=== PATIENT | female | born 1945 | race African-American/Black ===

== ENCOUNTER → 2016-07-19 | Outpatient (CLI) | payer MEDICARE, OTHER ==
--- NOTE | 2016-07-19 16:29 | WOMENS IMAGING REPORT ---
EXAM DESCRIPTION: 3D SCREENING MAMMO BILAT COMPLETED DATE/TIME: 07/19/2016 8:28 am REASON FOR STUDY: Z12.31, ROUTINE SCREENING MAMMO COMPARISON: Multiple since 2008 TECHNIQUE: Standard craniocaudal and mediolateral oblique views of each breast recorded using digita l acquisition and breast tomosynthesis. LIMITATIONS: None. FINDINGS: Findings present which are benign by mammographic criteria. No suspicious masses, calcifi cations or architectural distortion. Pertinent benign findings: Benign breast calcifications bilaterally. Old postsurgical changes in the right retroareolar region Read with the assistance of CAD. .[facility] - R2 Cenova Version 1.3 .[facility] - R2 Cenova Version 1.3 .[facility] - R2 Cenova Version 2.4 .[facility] - R2 Cenova Version 2.4 .[facility] - R2 [employer] Version 9.2 Benign mammographic findings may include one or more of the following: Smooth masses, popcorn/rim/co arse calcifications, asymmetries, post-procedure changes, and lesions with long-standing stability. IMPRESSION: BENIGN MAMMOGRAPHIC FINDINGS. BIRADS 2 BREAST DENSITY: b. There are scattered areas of fibroglandular density. BIRAD: 2 BENIGN FINDING(S) RECOMMENDATION: RECOMMENDATION: ROUTINE SCREENING COMMENT: The patient has been notified of the results by letter per MQSA requirements. Additional no tification policies are in place for contacting patient with suspicious or incomplete findings. Quality ID #[id number]: The [employer] recommends an annual screening mammogram for women aged 40 years or over. This facility utilizes a reminder system to ensure that all patients receive reminder letters, and/or direct phone calls for appointments. This includes reminders for routine scr eening mammograms, diagnostic mammograms, or other Breast Imaging Interventions when appropriate. Th is patient will be placed in the appropriate reminder system. The [employer] (ACR) has developed recommendations for screening MRI of the breast s in certain patient populations, to be used in conjunction with mammography. Breast MRI surveillanc e may be appropriate for women with more than 20% lifetime risk of developing breast cancer as deter mined by genetic testing, significant family history of the disease, or history of mantle radiation f or Hodgkins Disease. ACR Practice Guidelines 2008. DBT Technology DBT is a type of tomographic mammography. With conventional mammography, overlapping breast tissue ma y make lesions difficult to detect, even with good compression. DBT uses an x-ray tube that rotates a round the breast, taking images at different angles. These images are then combined to create thin sl ices of the breast that the radiologist can view as a 3D reconstruction. The Hologic unit can perform full-field digital mammograms (2D imaging); or DBT (3D imaging); or both, in a combination mode that quickly performs both the mammogram and the tomosynthesis scan while the breast is still compressed. PQRS 6045F: Fluoroscopic imaging is not utilized for breast tomosynthesis. TECHNICAL DOCUMENTATION: FINDING NUMBER: (1) ASSESSMENT: (1) JOB ID: [id number] [employer]- All Rights Reserved
== END ==
LOC: WI 08:01
PROVIDERS: ATTEND Nurse Practitioner
DX: Z12.31 Encounter for screening mammogram for malignant neoplasm of breast (principal)
CPT/HCPCS: 77063; G0202; 77067

== ENCOUNTER 2017-11-08 19:42 | Emergency (ER) | payer MEDICARE, OTHER ==
[2017-11-08 20:00] VITALS: BP 139/90
[2017-11-08] MEDS ORDERED: ASPIRIN 81 MG TABLET, CHEWABLE PO ONE (20:48)
[2017-11-08 20:57] LABS: ABSOLUTE EOSINOPHILS # (AUTO) 0.2 10^3/uL (0.0-0.6); ABSOLUTE LYMPHOCYTES (AUTO) 3.5 10^3/uL (0.5-4.7); ABSOLUTE MONOCYTES (AUTO) 0.6 10^3/uL (0.1-1.4); ABSOLUTE NEUT (AUTO) 4.4 10^3/uL (1.7-8.2); BASOPHILS % (AUTO) 0.4 % (0-2); HEMATOCRIT 41.5 % (36.0-47.0); HEMOGLOBIN 13.7 g/dL (12.0-15.5); LYMPHOCYTES % (AUTO) 40.3 % (13-45); MEAN CORPUSCULAR HEMOGLOBIN 29.1 pg (27.0-33.4); MEAN CORPUSCULAR HGB CONC 33.1 g/dL (32.0-36.0); MEAN CORPUSCULAR VOLUME 88 fl (80-97); MONOCYTES % (AUTO) 6.6 % (3-13); PLATELET COUNT 263 10^3/uL (150-450); RED BLOOD COUNT 4.73 10^6/uL (3.72-5.28); RED CELL DISTRIBUTION WIDTH 14.9 % (11.5-14.0); SEGMENTED NEUTROPHILS % (AUTO) 50.7 % (42-78); TOTAL CELLS COUNTED % (AUTO) 100 %; WHITE BLOOD COUNT 8.7 10^3/uL (4.0-10.5)
[2017-11-08 21:00] LABS: ALANINE AMINOTRANSFERASE 16 U/L (9-52); ALBUMIN 4.3 g/dL (3.5-5.0); ALKALINE PHOSPHATASE 71 U/L (38-126); ANION GAP 6 (5-19); ASPARTATE AMINO TRANSFERASE 43 U/L (14-36); BILIRUBIN,DIRECT 0.5 mg/dL (0.0-0.4); BILIRUBIN,TOTAL 0.6 mg/dL (0.2-1.3); BLOOD UREA NITROGEN 12 mg/dL (7-20); CALCIUM 9.9 mg/dL (8.4-10.2); CARBON DIOXIDE 29 mmol/L (22-30); CHLORIDE 106 mmol/L (98-107); CREATINE KINASE 56 U/L (30-135); GLUCOSE 93 mg/dL (75-110); POTASSIUM 3.9 mmol/L (3.6-5.0); SODIUM 140.5 mmol/L (137-145); TOTAL PROTEIN 7.8 g/dL (6.3-8.2)
[2017-11-08 21:11] LABS: CREATINE KINASE MB 0.79 ng/mL (<4.55)
[2017-11-08 21:12] LABS: TROPONIN I < 0.012 ng/mL
--- NOTE | 2017-11-08 21:18 | ER Document Report ---
ED General - General Chief Complaint: Chest Pain Stated Complaint: CHEST PAIN,LEFT SHOULDER PAIN Time Seen by Provider: 11/08/17 21:10 Notes: Patient presents with concern of shoulder pain and lateral left chest wall pain. Patient states that she has been doing a lot of volunteer work since [place] has been moving a lot of objects to help her clean up. Her pain is reproducible with movement of her arm as well as squeezing of her chest wall. She denies any history of heart attack or stroke does not take any blood thinners. She denies any shortness of breath and denies any dyspnea on exertion while working for her volunteer group. TRAVEL OUTSIDE OF THE [place] IN LAST 30 DAYS: No - Related Data Allergies/Adverse Reactions: No Known Allergies Allergy (Verified 11/15/14 19:35) Past Medical History - Social History Smoking Status: Former Smoker Family History: Reviewed & Not Pertinent Patient has suicidal ideation: No Patient has homicidal ideation: No - Past Medical History Cardiac Medical History: Reports: Hx Hypertension Denies: Hx Heart Attack, Hx Hypercholesterolemia Pulmonary Medical History: Denies: Hx Asthma, Hx COPD Neurological Medical History: Denies: Hx Cerebrovascular Accident, Hx Migraine Endocrine Medical History: Denies: Hx Diabetes Mellitus Type 1, Hx Diabetes Mellitus Type 2 Renal/ Medical History: Denies: Hx Peritoneal Dialysis Malignancy Medical History: Reports: Hx Breast Cancer Past Surgical History: Reports: Hx Breast Surgery - right breast lumpectomy, Hx Hysterectomy - Immunizations Hx Diphtheria, Pertussis, Tetanus Vaccination: No Review of Systems - Review of Systems Constitutional: No symptoms reported EENT: No symptoms reported Cardiovascular: See HPI Respiratory: No symptoms reported Gastrointestinal: No symptoms reported Genitourinary: No symptoms reported Female Genitourinary: No symptoms reported Musculoskeletal: No symptoms reported Skin: No symptoms reported Hematologic/Lymphatic: No symptoms reported Neurological/Psychological: No symptoms reported Physical Exam - Vital signs Vitals: Temp Pulse BP Pulse Ox 97.6 F 87 139/90 H 99 11/08/17 19:58 11/08/17 19:58 11/08/17 19:58 11/08/17 19:58 - General General appearance: Appears well, Alert - HEENT Head: Normocephalic, Atraumatic - Respiratory Respiratory status: No respiratory distress Chest status: Tender, Pain on movement - Cardiovascular Rhythm: Regular Heart sounds: Normal auscultation - Abdominal Inspection: Normal - Extremities General upper extremity: Normal inspection General lower extremity: Normal inspection - Neurological Cognition: Normal Orientation: AAOx4 Course - Re-evaluation Re-evalutation: 11/08/17 21:15 Patient well-appearing for age in no acute distress her pain is replicated with movement of her arm and chest wall. Due to patient being sent from urgent care chest pain workup was placed as a standing order. She first noticed her pain with movement approximate 3 PM and troponin is negative which has been greater than 4 hours. Based on history and patient's story of moving objects and pain reproduced patient will be diagnosed with muscular pain. Will be provided Voltaren gel and was instructed to use caution and not over exert herself with lifting 2 heavy objects. Return precautions regarding chest pain that would be more concerning for heart related activity was discussed. 11/08/17 21:50 - Vital Signs Vital signs: Temp Pulse Resp BP Pulse Ox 97.6 F 87 139/90 H 99 11/08/17 19:58 11/08/17 19:58 11/08/17 19:58 11/08/17 19:58 - Laboratory Result Diagrams: 11/08/17 19:19 11/08/17 19:19 Laboratory results interpreted by me: 11/08/17 11/08/17 19:19 19:19 RDW 14.9 H Direct Bilirubin 0.5 H AST 43 H - Diagnostic Test Radiology reviewed: Image reviewed, Reports reviewed - EKG Interpretation by Ga EKG shows normal: Sinus rhythm Rate: Normal Rhythm: NSR Discharge - Discharge Clinical Impression: Muscle strain Condition: Good Disposition: HOME, SELF-CARE Instructions: Muscle Strain (OM) Prescriptions: Diclofenac Sodium [Voltaren] 100 gm TP QID PRN #1 tube PRN Reason: Referrals: KRISHNA MEDEROS FNP [Primary Care Provider] - Follow up in 3-5 days (For re- evaluation)
--- NOTE | 2017-11-08 23:54 | RADIOLOGY REPORT (SQ) ---
XR CHEST 1 VIEW HISTORY: Chest pain. COMPARISON: 11/15/14 FINDINGS/IMPRESSION: Normal cardiomediastinal silhouette. Pulmonary vasculature is unremarkable. Lungs are clear. No pleural effusion or pneumothorax is seen. No acute osseous findings.
--- NOTE | 2017-11-09 07:59 | EKG REPORT ---
SEVERITY:- BORDERLINE ECG - SINUS RHYTHM VENTRICULAR PREMATURE COMPLEX BORDERLINE T ABNORMALITIES, INFERIOR LEADS : Confirmed by: Tesha Gutierrez MD 09-Nov-2017 07:58:06
== END 2017-11-08 22:05 | disposition home or self-care (01) ==
LOC: ER 19:42
DX: T14.8XXA Other injury of unspecified body region, initial encounter (principal); X58.XXXA Exposure to other specified factors, initial encounter; R07.89 Other chest pain; I10 Essential (primary) hypertension; Z87.891 Personal history of nicotine dependence; Z85.3 Personal history of malignant neoplasm of breast
CPT/HCPCS: 36415; 71045; 80053; 82550; 82553; 84484; 85025; 93005; 93010; 99285

== ENCOUNTER 2018-12-03 08:05 | Observation (INO) | payer MEDICARE, OTHER ==
[2018-12-03 09:41] LABS: ABSOLUTE EOSINOPHILS # (AUTO) 0.1 10^3/uL (0.0-0.6); ABSOLUTE LYMPHOCYTES (AUTO) 1.6 10^3/uL (0.5-4.7); ABSOLUTE MONOCYTES (AUTO) 0.5 10^3/uL (0.1-1.4); BASOPHILS % (AUTO) 0.4 % (0-2); EOSINOPHILS % (AUTO) 2.8 % (0-6); HEMATOCRIT 39.1 % (36.0-47.0); LYMPHOCYTES % (AUTO) 30.5 % (13-45); MEAN CORPUSCULAR HGB CONC 33.2 g/dL (32.0-36.0); MEAN CORPUSCULAR VOLUME 87 fl (80-97); MONOCYTES % (AUTO) 8.9 % (3-13); PLATELET COUNT 274 10^3/uL (150-450); RED BLOOD COUNT 4.48 10^6/uL (3.72-5.28); SEGMENTED NEUTROPHILS % (AUTO) 57.4 % (42-78); TOTAL CELLS COUNTED % (AUTO) 100 %; WHITE BLOOD COUNT 5.2 10^3/uL (4.0-10.5)
--- NOTE | 2018-12-03 09:46 | ER Document Report ---
ED General - General Chief Complaint: Dizziness Stated Complaint: CHEST PAIN Time Seen by Provider: 12/03/18 09:42 Primary Care Provider: KRISHNA MEDEROS FNP [Primary Care Provider] - Follow up as needed Notes: HPI: Patient is a 73-year-old female that presents today with the onset upon awakening with some left-sided chest discomfort that was described as "sharp" radiating down the left arm. Patient states she was nauseous and had some diaphoresis. She denies any shortness of breath, calf pain or leg swelling, recent trips or travel. She denies any appreciable cough. Patient states she has had some intermittent chest discomfort over this last month but states that this was more intense this morning. It lasted around 10 minutes and resolved on its own without intervention. ROS: See HPI All other review of systems reviewed and otherwise negative Reviewed vital signs and nursing note as charted by RN. PHYSICAL EXAM: CONSTITUTIONAL: Alert and oriented and responds appropriately to questions. W ell-appearing; well-nourished HEAD: Normocephalic; atraumatic NECK: Supple without meningismus; non-tender; no cervical lymphadenopathy, no masses CARD: Regular rate and rhythm; no murmurs; symmetric distal pulses RESP: Normal chest excursion without splinting or tachypnea; breath sounds clear and equal bilaterally; no wheezes, no rhonchi, no rales ABD/GI: Normal bowel sounds; non-distended; soft, non-tender BACK: The back appears normal and is non-tender to palpation EXT: Normal ROM in all joints; non-tender to palpation; no edema SKIN: No acute lesions noted NEURO: CN 2-12 intact; 5/5 bilateral upper and lower extremity strength with sensation intact to light touch PSYCH: The patient's mood and manner are appropriate. Grooming and personal hygiene are appropriate. TRAVEL OUTSIDE OF THE [place] IN LAST 30 DAYS: No - Related Data Allergies/Adverse Reactions: No Known Allergies Allergy (Verified 12/03/18 08:42) Home Medications: Metronidazole - started 11/30/18. Ciprofloxacin - started 11/30/18. Methimazole. Atorvastatin. Losartan. Metformin Past Medical History - Social History Smoking Status: Former Smoker Frequency of alcohol use: None Drug Abuse: None Family History: Reviewed & Not Pertinent Patient has suicidal ideation: No Patient has homicidal ideation: No - Past Medical History Cardiac Medical History: Reports: Hx Hypertension Denies: Hx Heart Attack, Hx Hypercholesterolemia Pulmonary Medical History: Denies: Hx Asthma, Hx COPD Neurological Medical History: Denies: Hx Cerebrovascular Accident, Hx Migraine Endocrine Medical History: Reports: Hx Diabetes Mellitus Type 2. Denies: Hx Diabetes Mellitus Type 1 Renal/ Medical History: Denies: Hx Peritoneal Dialysis Malignancy Medical History: Reports: Hx Breast Cancer Past Surgical History: Reports: Hx Breast Surgery - right breast lumpectomy, Hx Hysterectomy - Immunizations Hx Diphtheria, Pertussis, Tetanus Vaccination: No Physical Exam - Vital signs Vitals: Temp Pulse Resp BP Pulse Ox 98 F 102 H 18 136/82 H 96 12/03/18 08:22 12/03/18 08:22 12/03/18 08:22 12/03/18 08:22 12/03/18 08:22 Course - Re-evaluation Re-evalutation: Given the history and physical examination, we will obtain basic labs, cardiac panel, EKG, x-ray of the chest, provide aspirin, and reassess. I do believe pulmonary embolism and aortic dissection to be extraordinarily unlikely at this moment. 12/03/18 09:42 Heart rate 102, sinus tachycardia, normal axis, inverted T waves in leads I, II, aVL, V5 and V6 12/03/18 11:31 Patient is still chest pain-free. Labs, EKG, and imaging as recorded. Patient has been admitted to the hospitalist service for further evaluation with possibly cardiology consultation. - Vital Signs Vital signs: Temp Pulse Resp BP Pulse Ox 98 F 102 H 18 120/85 98 12/03/18 08:22 12/03/18 08:22 12/03/18 10:01 12/03/18 10:00 12/03/18 10:01 - Laboratory Result Diagrams: 12/03/18 09:29 12/03/18 09:29 Laboratory results interpreted by me: 12/03/18 12/03/18 09:29 09:29 RDW 15.0 H Chloride 109 H Est GFR (MDRD) Non-Af 54 L Discharge - Discharge Clinical Impression: Chest pain Qualifiers: Chest pain type: unspecified Qualified Code(s): R07.9 - Chest pain, unspecified Condition: Fair Disposition: ADMITTED OBSERVATION Admitting Provider: Talita (Hospitalist) Unit Admitted: Telemetry Referrals: KRISHNA MEDEROS FNP [Primary Care Provider] - Follow up as needed
[2018-12-03 10:02] LABS: ALBUMIN 3.9 g/dL (3.5-5.0); ALKALINE PHOSPHATASE 65 U/L (38-126); ANION GAP 11 (5-19); ASPARTATE AMINO TRANSFERASE 25 U/L (14-36); BILIRUBIN,DIRECT 0.1 mg/dL (0.0-0.4); BILIRUBIN,TOTAL 0.6 mg/dL (0.2-1.3); BLOOD UREA NITROGEN 12 mg/dL (7-20); CALCIUM 9.7 mg/dL (8.4-10.2); CARBON DIOXIDE 24 mmol/L (22-30); CHLORIDE 109 mmol/L (98-107); CREATINE KINASE 76 U/L (30-135); GLUCOSE 88 mg/dL (75-110); POTASSIUM 4.3 mmol/L (3.6-5.0)
[2018-12-03] MEDS ORDERED: ASPIRIN 325 MG TABLET PO ONE (10:10)
[2018-12-03 10:14] LABS: CREATINE KINASE MB 1.44 ng/mL (<4.55)
[2018-12-03 10:15] LABS: TROPONIN I < 0.012 ng/mL
--- NOTE | 2018-12-03 10:36 | EKG REPORT ---
SEVERITY:- ABNORMAL ECG - SINUS TACHYCARDIA WITH APC NONSPECIFIC T ABNORMALITIES, DIFFUSE LEADS : Confirmed by: Mich Preciado 03-Dec-2018 10:35:37
--- NOTE | 2018-12-03 11:47 | RADIOLOGY REPORT (SQ) ---
EXAM DESCRIPTION: CHEST 2 VIEWS COMPLETED DATE/TIME: 12/03/2018 10:56 am REASON FOR STUDY: 16; chest pain COMPARISON: Chest films 11/08/2017, 11/15/2014 EXAM PARAMETERS: NUMBER OF VIEWS: two views TECHNIQUE: Digital Frontal and Lateral radiographic views of the chest acquired. RADIATION DOSE: NA LIMITATIONS: none FINDINGS: LUNGS AND PLEURA: No opacities, masses or pneumothorax. No pleural effusion. MEDIASTINUM AND HILAR STRUCTURES: No masses or contour abnormalities. HEART AND VASCULAR STRUCTURES: Heart normal size. No evidence for failure. BONES: No acute findings. Osteoarthritis both shoulders HARDWARE: None in the chest. OTHER: No other significant finding. IMPRESSION: NO ACUTE RADIOGRAPHIC FINDING IN THE CHEST. TECHNICAL DOCUMENTATION: JOB ID: [id number] [employer]- All Rights Reserved Reading location - IP/workstation name: [email or web address]
[2018-12-03] MEDS ORDERED: ACETAMINOPHEN 325 MG TABLET PO PRN (12:28)
--- NOTE | 2018-12-03 12:51 | PDOC H&P ---
History of Present Illness Admission Date/PCP: 12/03/18 11:41 [facility] History of Present Illness: TIMMY LOPES is a 73 year old female with a history of hypertension and lfd-[id number]-zlqsgkixa diabetes mellitus who presents today after waking up this morning with left-sided chest pain that radiated to her left arm. She said it lasted about 5 or 10 minutes and then went away for a while and then came back again lasted about the same period of time. She said it happened a few times today, including a couple times after she got to the ER but she is been pain- free for a few hours now. She says she is never had anything like this before. She said she had a normal stress test a few years ago but she is not sure why she got it. She does have a history of treated breast cancer and had a lumpectomy but that was on the right side. She is not a smoker nor has she ever been. There is no history of coronary artery disease in her family. Her troponins have been normal and her EKG was unremarkable. She is being admitted for observation and a stress test. Past Medical History Cardiac Medical History: Reports: Hypertension Denies: Myocardial Infarction, Hyperlipidema Pulmonary Medical History: Denies: Asthma, Chronic Obstructive Pulmonary Disease (COPD) Neurological Medical History: Denies: Migraine Endocrine Medical History: Reports: Diabetes Mellitus Type 2 Denies: Diabetes Mellitus Type 1 Malignancy Medical History: Reports: Breast Cancer Past Surgical History Past Surgical History: Reports: Hysterectomy Social History Smoking Status: Former Smoker Frequency of Alcohol Use: Rare Hx Recreational Drug Use: No Hx Prescription Drug Abuse: No Family History Family History: Reviewed & Not Pertinent Parental Family History Reviewed: Yes - Father had lung cancer Children Family History Reviewed: Yes Sibling(s) Family History Reviewed.: Yes Medication/Allergy Allergies/Adverse Reactions: No Known Allergies Allergy (Verified 12/03/18 08:42) Review of Systems All systems: reviewed and no additional remarkable complaints except as stated - All systems were reviewed and were negative except as noted in the HPI Physical Exam Vital Signs: Temp Pulse Resp BP Pulse Ox 98 F 102 H 17 119/89 H 99 12/03/18 08:22 12/03/18 08:22 12/03/18 11:59 12/03/18 12:00 12/03/18 12:00 Intake & Output 12/02/18 12/03/18 12/04/18 06:59 06:59 06:59 Weight 72.121 kg General appearance: PRESENT: no acute distress, cooperative, obese Head exam: PRESENT: atraumatic, normocephalic Eye exam: PRESENT: EOMI, PERRLA. ABSENT: conjunctival injection, nystagmus, scleral icterus Ear exam: PRESENT: normal external ear exam Mouth exam: PRESENT: moist, neck supple Throat exam: ABSENT: post pharyngeal erythema Neck exam: PRESENT: full ROM. ABSENT: carotid bruit, JVD, lymphadenopathy, meningismus, tenderness, thyromegaly Respiratory exam: PRESENT: clear to auscultation madi, symmetrical, unlabored. ABSENT: accessory muscle use, chest wall tenderness, crackles, prolonged expiratory phas, rhonchi, tachypnea, wheezes Cardiovascular exam: PRESENT: RRR, +S1, +S2. ABSENT: systolic murmur Pulses: PRESENT: normal carotid pulses Vascular exam: PRESENT: normal capillary refill GI/Abdominal exam: PRESENT: normal bowel sounds, soft. ABSENT: distended, guarding, rebound, tenderness Extremities exam: ABSENT: clubbing, pedal edema Musculoskeletal exam: PRESENT: normal inspection. ABSENT: deformity Neurological exam: PRESENT: alert, awake, oriented to person, oriented to place, oriented to time, oriented to situation, CN II-XII grossly intact. ABSENT: motor sensory deficit Psychiatric exam: PRESENT: appropriate affect, normal mood Skin exam: PRESENT: dry, warm Results Laboratory Results: 12/03/18 09:29 12/03/18 09:29 12/03/18 12/03/18 09:29 09:29 WBC 5.2 RBC 4.48 Hgb 13.0 Hct 39.1 MCV 87 MCH 29.0 MCHC 33.2 RDW 15.0 H Plt Count 274 Seg Neutrophils % 57.4 Sodium 143.8 Potassium 4.3 Chloride 109 H Carbon Dioxide 24 Anion Gap 11 BUN 12 Creatinine 1.00 Est GFR ( Amer) > 60 Glucose 88 Calcium 9.7 Total Bilirubin 0.6 AST 25 Alkaline Phosphatase 65 Total Protein 7.0 Albumin 3.9 12/03/18 12/03/18 09:29 09:29 Creatine Kinase 76 CK-MB (CK-2) 1.44 Troponin I < 0.012 Impressions: Chest X-Ray 10/20/19 10:31 IMPRESSION: NO ACUTE RADIOGRAPHIC FINDING IN THE CHEST. Assessment and Plan - Diagnosis (1) Chest pain Qualifiers: Chest pain type: unspecified Qualified Code(s): R07.9 - Chest pain, unspec ified Is this a current diagnosis for this admission?: Yes Plan: Chief risk factors for age. She says she takes medicine for blood pressure but was told she is only on that because she is taking medicine for diabetes. She also says that her good cholesterol is low but her overall cholesterol numbers are normal, but she says she takes cholesterol medicine because her doctor told her because she is on diabetes medicine she should be taking it. We will run a trend on her enzymes and anticipate a stress test in the morning. If normal, cyndie scott can be discharged home. (2) Wit-yrnwimn-xhnbppeeh diabetes mellitus without complications Qualifiers: Diabetes mellitus long-term insulin use: without long-term use Qualified Code(s): E11.9 - Type 2 diabetes mellitus without complications Is this a current diagnosis for this admission?: Yes Plan: We will continue her home medications and a diabetic diet (3) Dyslipidemia Is this a current diagnosis for this admission?: Yes Plan: We will continue her home medications and a cardiac diet - Time Time Spent with patient: 35 or more minutes
[2018-12-03] MEDS ORDERED: DEXTROSE 40% GEL 15 GM TUBE PO PRN ×2 (19:43)
[2018-12-03] MEDS ORDERED: DEXTROSE 50%-WATER 25 GM/50 ML DISP.SYRIN IV PRN ×2 (19:43)
[2018-12-03] MEDS ORDERED: GLUCAGON,HUMAN RECOMB 1 MG INJ SUBCUT PRN (19:43)
[2018-12-04 05:44] LABS: HEMATOCRIT 37.5 % (36.0-47.0); HEMOGLOBIN 12.4 g/dL (12.0-15.5); MEAN CORPUSCULAR HEMOGLOBIN 28.8 pg (27.0-33.4); MEAN CORPUSCULAR HGB CONC 33.2 g/dL (32.0-36.0); MEAN CORPUSCULAR VOLUME 87 fl (80-97); PLATELET COUNT 236 10^3/uL (150-450); RED BLOOD COUNT 4.32 10^6/uL (3.72-5.28); RED CELL DISTRIBUTION WIDTH 14.7 % (11.5-14.0); WHITE BLOOD COUNT 6.2 10^3/uL (4.0-10.5)
[2018-12-04 06:04] LABS: ANION GAP 8 (5-19); BLOOD UREA NITROGEN 12 mg/dL (7-20); CALCIUM 9.4 mg/dL (8.4-10.2); CARBON DIOXIDE 22 mmol/L (22-30); CHLORIDE 110 mmol/L (98-107); CHOLESTEROL 91.06 mg/dL (0-200); GLUCOSE 114 mg/dL (75-110); POTASSIUM 4.3 mmol/L (3.6-5.0); TRIGLYCERIDES 99 mg/dL (<150)
[2018-12-04 06:15] LABS: DIRECT LDL 45 mg/dL (<100)
--- NOTE | 2018-12-04 07:58 | EKG REPORT ---
SEVERITY:- ABNORMAL ECG - SINUS RHYTHM ATRIAL PREMATURE COMPLEX BORDERLINE T ABNORMALITIES, LATERAL LEADS : Confirmed by: Mich Preciado 04-Dec-2018 07:57:36
[2018-12-04] MEDS ORDERED: INFLUENZA QUAD (6MOS+) 2019-20 VAC 0.5 ML SYR IM ONE (08:00)
[2018-12-04] MEDS: ASPIRIN 81 MG TABLET, CHEWABLE PO SCH (09:28)
--- NOTE | 2018-12-04 15:37 | PDOC PROGRESS REPORT ---
Subjective Progress Note for:: 12/04/18 Subjective:: No adverse events overnight. No new complaints. No chest pain or shortness of breath. Troponins have been negative. No events on telemetry. Reason For Visit: CHEST PAIN Physical Exam Vital Signs: Temp Pulse Resp BP Pulse Ox 98.8 F 106 H 16 123/81 99 12/04/18 11:16 12/04/18 14:00 12/04/18 11:16 12/04/18 11:16 12/04/18 11:16 Intake & Output 12/03/18 12/04/18 12/05/18 06:59 06:59 06:59 Intake Total 240 240 Balance 240 240 Weight 73.4 kg General appearance: PRESENT: no acute distress, cooperative Respiratory exam: PRESENT: clear to auscultation madi, symmetrical, unlabored. ABSENT: accessory muscle use, chest wall tenderness, crackles, prolonged expiratory phas, rhonchi, tachypnea, wheezes Cardiovascular exam: PRESENT: RRR, +S1, +S2 Pulses: PRESENT: normal carotid pulses Vascular exam: PRESENT: normal capillary refill GI/Abdominal exam: PRESENT: normal bowel sounds, soft. ABSENT: distended, guarding, rebound, tenderness Extremities exam: ABSENT: clubbing, pedal edema Musculoskeletal exam: PRESENT: normal inspection. ABSENT: deformity Neurological exam: PRESENT: alert, awake, oriented to person, oriented to place, oriented to situation Psychiatric exam: PRESENT: appropriate affect, normal mood Skin exam: PRESENT: dry, warm Results Laboratory Results: 12/04/18 05:16 12/04/18 05:16 12/04/18 12/04/18 05:16 05:16 WBC 6.2 RBC 4.32 Hgb 12.4 Hct 37.5 MCV 87 MCH 28.8 MCHC 33.2 RDW 14.7 H Plt Count 236 Sodium 140.4 Potassium 4.3 Chloride 110 H Carbon Dioxide 22 Anion Gap 8 BUN 12 Creatinine 0.82 Est GFR ( Amer) > 60 Glucose 114 H Calcium 9.4 Triglycerides 99 Cholesterol 91.06 LDL Cholesterol Direct 45 VLDL Cholesterol 20.0 HDL Cholesterol 29 L 12/03/18 12/03/18 12/03/18 09:29 09:29 13:17 Creatine Kinase 76 CK-MB (CK-2) 1.44 Troponin I < 0.012 < 0.012 12/03/18 18:45 Creatine Kinase CK-MB (CK-2) Troponin I < 0.012 Impressions: Chest X-Ray 12/03/18 10:31 IMPRESSION: NO ACUTE RADIOGRAPHIC FINDING IN THE CHEST. Assessment and Plan - Diagnosis (1) Chest pain Qualifiers: Chest pain type: unspecified Qualified Code(s): R07.9 - Chest pain, unspecified Is this a current diagnosis for this admission?: Yes Plan: Troponins negative. No chest pain. I offered her the opportunity to have her stress test on as an outpatient and she elected to do an inpatient (2) Ztj-mesitgn-kfkovzmjd diabetes mellitus without complications Qualifiers: Diabetes mellitus halfway insulin use: without terminal gauger supervisor use Qualified Code(s): E11.9 - Type 2 diabetes mellitus without complications Is this a current diagnosis for this admission?: Yes Plan: We will continue her home medications and a diabetic diet (3) Dyslipidemia Is this a current diagnosis for this admission?: Yes Plan: We will continue her home medications and a cardiac diet - Time Time Spent with patient: 15-24 minutes
[2018-12-05] MEDS: ASPIRIN 81 MG TABLET, CHEWABLE PO SCH (10:55)
[2018-12-05] MEDS ORDERED: REGADENOSON INJ 0.4 MG/5 ML DISP.SYRIN IV ONE (14:40)
[2018-12-05 15:17] VITALS: BP 120/65
--- NOTE | 2018-12-05 17:26 | PDOC DISCHARGE SUMMARY ---
Impression - Admit/DC Date/PCP Admission Date/Primary Care Provider: 12/03/18 11:41 VALE BEAR Discharge Date: 12/05/18 - Discharge Diagnosis (1) Chest pain Is this a current diagnosis for this admission?: Yes (2) Lgp-[id number] diabetes mellitus without complications Is this a current diagnosis for this admission?: Yes (3) Dyslipidemia Is this a current diagnosis for this admission?: Yes - Additional Information Resuscitation Status: Full Code Discharge Diet: Cardiac Discharge Activity: Activity As Tolerated Referrals: KRISHNA MEDEROS FNP [Primary Care Provider] - 12/12/18 2:00 pm Home Medications: Atorvastatin Calcium [Lipitor 20 mg Tablet] 20 mg PO DAILY 12/03/18 Losartan Potassium [Cozaar 25 mg Tablet] 25 mg PO DAILY 12/03/18 Metformin HCl [Metformin HCl ER] 500 mg PO DAILY 12/03/18 Methimazole [Tapazole 5 mg Tablet] 5 mg PO DAILY 12/03/18 Aspirin [Aspirin 81 mg Chewable Tablet] 81 mg PO DAILY tab.chew 12/05/18 History of Present Illiness History of Present Illness: TIMMY LOPES is a 73 year old female with a history of hypertension and kti-sazkafs-qodzohuud diabetes mellitus who presents today after waking up this morning with left-sided chest pain that radiated to her left arm. She said it lasted about 5 or 10 minutes and then went away for a while and then came back again lasted about the same period of time. She said it happened a few times today, including a couple times after she got to the ER but she is been pain- free for a few hours now. She says she is never had anything like this before. She said she had a normal stress test a few years ago but she is not sure why she got it. She does have a history of treated breast cancer and had a lumpectomy but that was on the right side. She is not a smoker nor has she ever been. There is no history of coronary artery disease in her family. Her troponins have been normal and her EKG was unremarkable. She is being admitted for observation and a stress test. Hospital Course Hospital Course: Troponins remain negative. She was not having any more chest pain. No events on telemetry. She had a stress test that was negative. Was recommended that she had a daily aspirin to her other medications. Her labs and examination were reassuring and she was discharged in good condition. Physical Exam Vital Signs: Temp Pulse Resp BP Pulse Ox 98.3 F 83 17 120/65 100 12/05/18 15:14 12/05/18 15:14 12/05/18 15:14 12/05/18 15:14 12/05/18 15:14 Intake & Output 12/04/18 12/05/18 12/06/18 06:59 06:59 06:59 Intake Total 240 600 Balance 240 600 Weight 73.4 kg 74.8 kg General appearance: PRESENT: no acute distress, cooperative Respiratory exam: PRESENT: clear to auscultation madi, symmetrical, unlabored. ABSENT: accessory muscle use, chest wall tenderness, crackles, prolonged expiratory phas, rhonchi, tachypnea, wheezes Cardiovascular exam: PRESENT: RRR, +S1, +S2 Pulses: PRESENT: normal carotid pulses Vascular exam: PRESENT: normal capillary refill GI/Abdominal exam: PRESENT: normal bowel sounds, soft. ABSENT: distended, guarding, rebound, tenderness Extremities exam: ABSENT: clubbing, pedal edema Musculoskeletal exam: PRESENT: normal inspection. ABSENT: deformity Neurological exam: PRESENT: alert, awake, oriented to person, oriented to place, oriented to situation Psychiatric exam: PRESENT: appropriate affect, normal mood Skin exam: PRESENT: dry, warm Results Laboratory Results: WBC 6.2 10^3/uL (4.0-10.5) 12/04/18 05:16 RBC 4.32 10^6/uL (3.72-5.28) 12/04/18 05:16 Hgb 12.4 g/dL (12.0-15.5) 12/04/18 05:16 Hct 37.5 % (36.0-47.0) 12/04/18 05:16 MCV 87 fl (80-97) 12/04/18 05:16 MCH 28.8 pg (27.0-33.4) 12/04/18 05:16 MCHC 33.2 g/dL (32.0-36.0) 12/04/18 05:16 RDW 14.7 % (11.5-14.0) H 12/04/18 05:16 Plt Count 236 10^3/uL (150-450) 12/04/18 05:16 Lymph % (Auto) 30.5 % (13-45) 12/03/18 09:29 [place] % (Auto) 8.9 % (3-13) 12/03/18 09:29 Eos % (Auto) 2.8 % (0-6) 12/03/18 09:29 Baso % (Auto) 0.4 % (0-2) 12/03/18 09:29 Absolute Neuts (auto) 3.0 10^3/uL (1.7-8.2) 12/03/18 09:29 Absolute Lymphs (auto) 1.6 10^3/uL (0.5-4.7) 12/03/18 09:29 Absolute Monos (auto) 0.5 10^3/uL (0.1-1.4) 12/03/18 09:29 Absolute Eos (auto) 0.1 10^3/uL (0.0-0.6) 12/03/18 09:29 Absolute Basos (auto) 0.0 10^3/uL (0.0-0.2) 12/03/18 09:29 Seg Neutrophils % 57.4 % (42-78) 12/03/18 09:29 Sodium 140.4 mmol/L (137-145) 12/04/18 05:16 Potassium 4.3 mmol/L (3.6-5.0) 12/04/18 05:16 Chloride 110 mmol/L (98-107) H 12/04/18 05:16 Carbon Dioxide 22 mmol/L (22-30) 12/04/18 05:16 Anion Gap 8 (5-19) 12/04/18 05:16 BUN 12 mg/dL (7-20) 12/04/18 05:16 Creatinine 0.82 mg/dL (0.52-1.25) 12/04/18 05:16 Est GFR ( Amer) > 60 (>60) 12/04/18 05:16 Est GFR (MDRD) Non-Af > 60 (>60) 12/04/18 05:16 Glucose 114 mg/dL (75-110) H 12/04/18 05:16 POC Glucose 104 mg/dL (70-110) 12/05/18 08:14 Calcium 9.4 mg/dL (8.4-10.2) 12/04/18 05:16 Total Bilirubin 0.6 mg/dL (0.2-1.3) 12/03/18 09:29 Direct Bilirubin 0.1 mg/dL (0.0-0.4) 12/03/18 09:29 Neonat Total Bilirubin Not Reportable 12/03/18 09:29 Neonat Direct Bilirubin Not Reportable 12/03/18 09:29 Neonat Indirect Bili Not Reportable 12/03/18 09:29 AST 25 U/L (14-36) 12/03/18 09:29 ALT 15 U/L (<35) 12/03/18 09:29 Alkaline Phosphatase 65 U/L (38-126) 12/03/18 09:29 Creatine Kinase 76 U/L (30-135) 12/03/18 09:29 CK-MB (CK-2) 1.44 ng/mL (<4.55) 12/03/18 09:29 Troponin I < 0.012 ng/mL 12/03/18 18:45 Total Protein 7.0 g/dL (6.3-8.2) 12/03/18 09:29 Albumin 3.9 g/dL (3.5-5.0) 12/03/18 09:29 Triglycerides 99 mg/dL (<150) 12/04/18 05:16 Cholesterol 91.06 mg/dL (0-200) 12/04/18 05:16 LDL Cholesterol Direct 45 mg/dL (<100) 12/04/18 05:16 VLDL Cholesterol 20.0 mg/dL (10-31) 12/04/18 05:16 HDL Cholesterol 29 mg/dL (>40) L 12/04/18 05:16 12/03/18 12/03/18 12/03/18 09:29 13:17 18:45 CK-MB (CK-2) 1.44 Troponin I < 0.012 < 0.012 < 0.012 Impressions: Chest X-Ray 12/03/18 10:31 IMPRESSION: NO ACUTE RADIOGRAPHIC FINDING IN THE CHEST. Plan Time Spent: Greater than 30 Minutes Stroke Is this a Stroke Patient?: No Acute Heart Failure - Is this a Heart Failure Patient?: No
--- NOTE | 2018-12-05 23:21 | DRAGON STRESS TEST REPORT ---
Intravenous Lexiscan Cardiolite stress test using single photon emmision computerized tomography. Date of procedure: 12/05/2018. Ordering Provider: Dr. Sanon. Patient's status In Patient Indication: Chest pain. Coronary risk factors: Age, diabetes mellitus, and hypertension. Resting EKG: Sinus. Rhythm. EKG within normal limits. Stress EKG: No changes of ischemia. The patient had no chest pain or discomfort, and there were no arrhythmias seen. Reason for termination: Protocol. Conclusions: Normal EKG and hemodynamic response to IV Lexiscan. Nuclear data: At rest the patient was given 10.63 millicuries of technetium 99m sestamibi injected intravenously. As per protocol rest non gated SPECT images were obtained. Subsequently the patient was given intravenous Lexiscan at a dose of 0.4 mg in 5 mL intravenously, followed by flush with normal saline. Subsequently the stress dose of 31.9 millicuries of technetium 99m sestamibi was injected intravenously. As per protocol stress gated images were obtained. Nuclear interpretation: Review of images showed that all segments of the myocardium had normal perfusion at rest, and normal perfusion post stress with IV Lexiscan. All segments of the myocardium had normal motion, contraction, and thickening by gated study. T. I D. ratio was read as abnormal at 1.25. Visually this is not reliable, and visually the T8 I D ratio is normal.. There is no transient ischemic dilatation of the left ventricle. Computer read rest, and stress left ventricular ejection fraction were 58 %, and 58 %, respectively. Conclusion: 1. There is no scintigraphic evidence of Lexiscan induced myocardial ischemia. 2. There is no scintigraphic evidence of myocardial infarction/scar. Recommendations: Aggressive risk factor modification, and treating the underlying co- morbidities. MTDD
== END 2018-12-05 15:40 | disposition home or self-care (01) ==
LOC: ER 08:05 → EH 11:41 → 5 12:40
PROVIDERS: ADMIT Family Medicine; ATTEND Family Medicine
DX: R07.9 Chest pain, unspecified (principal); E11.9 Type 2 diabetes mellitus without complications; E78.5 Hyperlipidemia, unspecified; R42 Dizziness and giddiness; E66.9 Obesity, unspecified; R11.0 Nausea; R61 Generalized hyperhidrosis; I10 Essential (primary) hypertension; R00.0 Tachycardia, unspecified; Z79.899 Other long term (current) drug therapy; Z79.82 Long term (current) use of aspirin; Z79.84 Long term (current) use of oral hypoglycemic drugs; Z85.3 Personal history of malignant neoplasm of breast; Z87.891 Personal history of nicotine dependence; Z80.1 Family history of malignant neoplasm of trachea, bronchus and lung
CPT/HCPCS: 93005 ×2; 99285; 36415 ×2; 82553; 82962 ×2; 82550; 85025; 85027; 80048; 80053; 84484; 80061; 93017; 71046; 78452; 93010 ×2; G0378 ×4; A9500; J2785; A9270 ×3; J3490 ×2; Q9969